=== PATIENT | male | born 1945 | race Caucasian/White ===

== ENCOUNTER 2025-08-06 12:45 | Day surgery (SDC) | payer MEDICARE, OTHER ==
[2025-08-06] MEDS ORDERED: CEFAZOLIN SODIUM ONE (12:51)
[2025-08-06] MEDS: Lactated Ringers 1,000 ML IV SCH (13:12)
[2025-08-06 13:32] VITALS: BP 155/87; PULSE 79; RESP 16; TEMP 97.6; O2SAT 97
[2025-08-06 16:08] LABS: BASOPHIL % 0.6 % (0.2-1.2); Basophil (Absolute #) 0.03 x10^3/uL (0.01-0.08); Eosinophil (Absolute #) 0.07 x10^3/uL (0.04-0.54); Hematocrit 43.1 % (40.1-51.0); Hemoglobin 13.3 g/dL (13.7-17.5); IMMATURE GRAN # 0.01 x10^3u/L (0.001-0.031); IMMATURE GRAN % 0.2 % (0.001-0.429); Lymphocyte (Absolute #) 1.37 x10^3/uL (1.32-3.57); Mean Corpuscular Hemoglobin 24.8 pg (25.7-32.2); Mean Corpuscular Hgb Concent. 30.9 g/dL (32.3-36.5); Monocyte (Absolute #) 0.56 x10^3/uL (0.30-0.82); NUCLEATED RBC # 0.00 x10^3u/L (0.00-0.012); NUCLEATED RBC % 0.0 % (0.00-0.2); Platelet Count 157 x10^3/uL (163-337); Red Blood Count 5.36 x10^6/uL (4.63-6.08); White Blood Count 5.4 x10^3/uL (4.23-9.07)
[2025-08-06 16:36] LABS: Calcium 9.2 mg/dL (8.4-10.2); Carbon Dioxide 28.0 mmol/L (22-30); Creatinine 1 0.88 mg/dL (0.66-1.25); EST GLOMERULAR FILTRATION RATE 86.9 ML/MIN; Glucose 88.0 mg/dL (74-106); Potassium 4.1 mmol/L (3.5-5.1)
== END 2025-08-06 18:15 | disposition home or self-care (01) ==
LOC: SDC 12:45
PROVIDERS: ATTEND Surgery
DX: Z53.8 Procedure and treatment not carried out for other reasons (principal)

== ENCOUNTER 2025-08-07 10:21 | Day surgery (SDC) | payer MEDICARE, OTHER ==
[2025-08-07] MEDS ORDERED: Sensorcaine 0.25% 10 ML ONE (10:46)
[2025-08-07] MEDS: Lactated Ringers 1,000 ML IV SCH (11:05)
[2025-08-07] MEDS ORDERED: ROCURONIUM BROMIDE IV ONE (11:37)
[2025-08-07] MEDS ORDERED: BRIDION 200MG/2ML IV ONE (11:37)
[2025-08-07] MEDS ORDERED: TORAdol 30 mg Injection ONE (11:37)
[2025-08-07] MEDS ORDERED: Zofran 4 MG/2 ML VIAL ONE (11:37)
[2025-08-07] MEDS ORDERED: Xylocaine-Mpf 2% 5 Ml Vial ONE (11:37)
[2025-08-07] MEDS ORDERED: SUBLIMAZE 100 MCG/2 ML ONE (11:37)
[2025-08-07] MEDS ORDERED: propofoL IV ONE (11:37)
[2025-08-07] MEDS ORDERED: KEFZOL 1 GM ONE (11:46)
[2025-08-07] MEDS ORDERED: APRESOLINE 20 MG/ML INJ ONE (12:13)
[2025-08-07] MEDS ORDERED: ROBINUL ONE (12:20)
[2025-08-07] MEDS ORDERED: Marcaine 0.5%/Epinephrine 10 ML ONE (12:32)
[2025-08-07] MEDS ORDERED: DILAUDID 0.5 MG/0.5 ML SYRINGE ONE (13:05)
[2025-08-07 13:35] VITALS: RESP 16
[2025-08-07 13:45] VITALS: PULSE 79; O2SAT 98
[2025-08-07 14:04] VITALS: BP 153/96
[2025-08-07 14:23] VITALS: TEMP 97.6
--- NOTE | 2025-08-08 09:46 | OP ---
SURGERY DATE/TIME: 08/07/2025 [id number] PREOPERATIVE DIAGNOSIS: Symptomatic right inguinal hernia, probably indirect, with 2 major episodes, 1 requiring visit to [facility] Emergency Room. POSTOPERATIVE DIAGNOSIS: Right inguinal hernia, indirect. PROCEDURE: Open right inguinal hernia repair with mesh. SURGEON: Carlos Manuel Carbajal MD ANESTHESIA: General. QUANTITATIVE BLOOD LOSS: None. COMPLICATIONS: None. CONDITION: Stable. DRAINS: None. INDICATIONS: Patient has had marked symptoms and 2 emergencies, 1 requiring ER visit with acute incarcerated right inguinal hernia that was reduced in the ER at [facility]. Patient was seen and examined in the office. Procedure discussed. He had had a previous hernia repair just above this some time ago, 15, 20 years ago or more. DESCRIPTION OF PROCEDURE AND FINDINGS: Patient taken to surgery. General anesthetic. Routine prep and drape. Kidney rest was placed up. Time-out performed. Marcaine 0.25%, curvilinear incision. External oblique opened. The inguinal canal itself looked unviolated. A 6-inch indirect sac was present, was isolated, was highly ligated under direct visualization with no sliding component with 0 Prolene. The floor was reinforced with a free keyholed mesh secured to Sloan's, transitioning up the Poupart's, rest to the lateral repair at that level. The medial repair at the conjoint tendon throughout. Mesh secured to mesh above the ring. Ring was 1.5. Cord laid back in transposition. Inguinal nerve laid back in natural position. External oblique closed with 0 Vicryl. Terri's approximated with 2-0 Vicryl. Skin closed with 4-0 Vicryl. Steri-Strips applied. Sterile dressing applied. Testicles down to the scrotum satisfactorily. Patient tolerated procedure satisfactorily. Findings discussed with the .
== END 2025-08-07 14:23 | disposition home or self-care (01) ==
LOC: SDC 10:21
PROVIDERS: ATTEND Surgery
DX: K40.90 Unilateral inguinal hernia, without obstruction or gangrene, not specified as recurrent (principal)
CPT/HCPCS: 49505; C1781